=== PATIENT | female | born 1980 | race Two or more races ===

== ENCOUNTER 2016-08-12 14:01 | Emergency (ER) | payer MEDICAID, OTHER ==
--- NOTE | 2016-08-12 16:39 | RAD ---
Name: ARNEL MALAGON Exam: Right shoulder Comparison: None Clinical history: Right arm and shoulder pain Findings: 3 views right shoulder are submitted. Bone density is normal. AC joint and coracoclavicular joints are normal. There is mild irregularity of the glenoid. Spurring of the greater tuberosity is present. Subacromial space is maintained. There is no fracture, dislocation or suspicious soft tissue calcification. Visualized portion of the right lung is clear. Impression: 1. Spurring at the greater tuberosity 2. Mild degenerative irregularity of the glenoid 3. No acute bony abnormality
== END 2016-08-12 17:02 | disposition home or self-care (01) ==
LOC: ED 14:01
DX: S43.401A Unspecified sprain of right shoulder joint, initial encounter (principal); W19.XXXA Unspecified fall, initial encounter; Y92.9 Unspecified place or not applicable

== ENCOUNTER 2016-09-15 15:03 | Emergency (ER) | payer OTHER ==
[2016-09-15 16:15] LABS: ABSOLUTE NEUTROPHIL COUNT 4.3 K/mm3 (1.8-7.7); BASO % 0.4 % (0.2-1.0); EOS # 0.1 (0.0-0.5); HEMATOCRIT 38.1 % (37.0-47.0); HEMOGLOBIN 12.6 gm/l (12.0-16.0); IMM NEUT% 0.1 % (0-1); LYMPH # 2.2 (1.0-4.8); LYMPH % 31.3 % (15-45); MEAN CELL VOLUME 91.1 fl (81.0-99.0); MEAN CORPUSCULAR HEMOGLOBIN 30.1 pg (27.0-31.0); MEAN CORPUSCULAR HGB CONC 33.1 g/dl (33.0-37.0); MEAN PLATELET VOLUME 11.9 fl (7.4-10.4); MONO # 0.4 (0.0-0.8); MONO % 6.1 % (4-12); NEUT % 60.1 % (43-75); PLATELET COUNT 253 K/mm3 (130-400); RED CELL DISTRIBUTION WIDTH 12.8 % (11.5-14.5)
[2016-09-15 16:33] LABS: ALB/GLOB RATIO 1.3 (>1.0); ALBUMIN 4.2 gm/dL (3.5-5.7); CALCIUM 9.2 mg/dL (8.6-10.3)
--- NOTE | 2016-09-15 17:10 | RAD ---
CHEST - 2 VIEWS COMPARISON: None. HISTORY: Chest pain for 2 weeks FINDINGS: Views: Frontal and lateral chest Lungs: Normal Heart and vessels: Normal Trachea and bronchi: Normal Mediastinum and yovani: Normal Costophrenic sulci: Normal Chest wall and bones: Normal. Upper abdomen: Normal. IMPRESSION: Negative 2 view chest.
== END 2016-09-15 17:32 | disposition home or self-care (01) ==
LOC: ED 15:03
DX: R07.9 Chest pain, unspecified (principal); R06.02 Shortness of breath